=== PATIENT | male | born 1960 | race Hispanic/Latino ===

== ENCOUNTER → 2018-06-07 | Outpatient (CLI) | payer BC ==
[~2018-06-07] MED LIST: CHOL200059 PO; CLOP75TA32 PO; FISH1CAP27 PO; LISI-613 PO; METF-444 PO; PSYL660P17 PO; ROSU10TA27 PO; UBID100C10 PO
== END | disposition home or self-care (01) ==
LOC: RAH 08:31
PROVIDERS: ATTEND Internal Medicine Cardiovascular Disease
DX: I25.10 Atherosclerotic heart disease of native coronary artery without angina pectoris (principal); I10 Essential (primary) hypertension; Z95.1 Presence of aortocoronary bypass graft
CPT/HCPCS: 78452; 93017; A9500 ×2